=== PATIENT | male | born 1980 | race African-American/Black ===

== ENCOUNTER 2021-03-24 10:56 | Emergency (ER) | payer SELFPAY ==
--- NOTE | ~2021-03-24 | XR_ITS ---
XR lumbar spine 2-3V DATE: 03/24/2021 12:16 INDICATION: Low right back pain; no injury. TECHNIQUE: AP, lateral, coned lateral lumbosacral views COMPARISON: None FINDINGS: Normal alignment of the lumbar spine. No fracture or bone destruction or spondylolisthesis. The lumbar pedicles are intact. Lumbar and lumbosacral interspaces appear preserved. The sacroiliac joints appear normal. IMPRESSION: No significant abnormality Reviewed, dictated and finalized at location A. 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
[2021-03-24 11:04] VITALS: BP 153/98; PULSE 66; RESP 14; TEMP 36.7; O2SAT 100
[2021-03-24 11:25] VITALS: BP 153/98; PULSE 66; RESP 16; TEMP 36.6; O2SAT 100
--- NOTE | 2021-03-24 11:51 | ED.GENADULT ---
HPI - General Adult General Chief complaint: Back Pain/Injury Stated complaint: Back pain Time Seen by Provider: 03/24/21 11:16 Source: patient Mode of arrival: ambulatory Limitations: no limitations History of Present Illness HPI narrative: Pt presents for evaluation of low back pain for the past two weeks. He has had intermittent low back pain for about twenty years. He states his initial episode of pain started after moving some items using a candice. He cannot identify any recent injury. He states he was seen at [facility] about three weeks ago for fever, body aches, fatigue. He had a COVID test at that time which was negative. He states that the treating provider told him he likely had influenza but a flu test was not performed. Patient states that pain in low back is constant, described as stabbing , rated 8/10. No radicular component. No paresthesias. No urinary symptoms. He took ibuprofen for his pain without significant improvement thereafter. Related Data Allergies Allergy/AdvReac Type Severity Reaction Status Date / Time No Known Allergies Allergy Unknown Verified 03/24/21 11:17 Review of Systems Review of Systems: CONSTITUTIONAL: Denies fever, chills, or sweats. EYES: Denies visual changes, redness, or discharge. ENT: Denies rhinorrhea, congestion, sore throat, or otalgia. CARDIOVASCULAR: Denies chest pain, palpitations, or edema. RESPIRATORY: Denies cough or dyspnea. GASTROINTESTINAL: Denies abdominal pain, nausea, vomiting, or diarrhea. GENITOURINARY: Denies dysuria or hematuria. SKIN: Denies rash or itching. MUSCULOSKELETAL: Reports low back pain. Denies joint pain or myalgia. NEUROLOGIC: Denies headache, numbness, dizziness, or weakness. PSYCHIATRIC: Denies anxiety or depression. [facility] Past Medical History Medical History (Updated 03/24/21 @ 12:43 by MARGARETTE Lindo, EMILY) No pertinent past medical history Surgical History Surgical History History of hand surgery Family History Family History Mother Cerebrovascular accident Social History Social History Alcohol intake: never Substance use: current Substance use type: marijuana Additional living arrangements comments: Lives with girlfriend Gender identity (if verbalized by the patient): Male Sexual Orientation (if Verbalized by the Patient): Straight or Heterosexual Spiritual care concerns: No Exam Narrative: GENERAL: Well-appearing, well-nourished, and in no acute distress. HEAD: Normocephalic, atraumatic. EYES: PERRLA and EOMI. ENT: Nares clear, no rhinorrhea or epistaxis. Mucous membranes moist. Oropharynx without tonsillar hypertrophy exudate or other lesions. Bilateral TMs pearly felipe nonbulging NECK: Supple. No adenopathy or masses. No carotid bruits or JVD CHEST: Clear to auscultation. No respiratory distress. No wheezes rales or rhonchi HEART: Regular rate and rhythm. No murmur heard. Normal peripheral pulses. ABDOMEN: Soft, nontender, nondistended, normal active bowel sounds. EXTREMITIES: Normal range of motion. No edema. BACK: No tenderness in midline or paraspinous muscles of lumbar spine or over posterior pelvis SKIN: Warm, dry, no rash. NEURO: No focal deficits. Alert and oriented x3. PSYCH: Normal mood and affect. Course Course Emergency Course: This is a 40-year-old male who presented with complaints of low back pain. X-ray was negative. He was given Toradol and Flexeril with some mild improvement in his symptoms. Will discharge with Flexeril and tramadol. He can continue to take NSAIDs. He should follow-up outpatient for further evaluation and treatment and return for worsening symptoms. Patient in agreement with plan of care. Vital Signs Vital signs: Vital Signs Temperature 36.7 C 03/24/21 11:04 Puls
[2021-03-24] MEDS: KETOROLAC (*BKC) 60 MG/2 ML VIAL IM (11:56)
[2021-03-24] MEDS: CYCLOBENZAPRINE HCL 10 MG TABLET PO (11:56)
== END 2021-03-24 13:00 | disposition home or self-care (01) ==
PROVIDERS: Emergency Provider Nurse Practitioner
DX: S39.012A Strain of muscle, fascia and tendon of lower back, initial encounter (principal); X58.XXXA Exposure to other specified factors, initial encounter
CPT/HCPCS: 72100; 96372; 99283; A9270; J1885

== ENCOUNTER 2021-12-31 20:55 | Emergency (ER) | payer OTHER, SELFPAY ==
[2021-12-31 20:58] VITALS: BP 162/94; PULSE 64; RESP 20; TEMP 36.4; O2SAT 99
--- NOTE | 2021-12-31 23:37 | ED.BACK ---
HPI - Back Pain/Injury General Chief Complaint: Back Pain/Injury Stated Complaint: back pain Time Seen by Provider: 12/31/21 23:07 History of Present Illness HPI Narrative: 41-year-old male with a chronic low back pain patient presents to the emergency room with worsening low back pain. Patient states symptoms worsened yesterday following no specific known injury or trauma. Patient denies radiating pain. Denies radiculopathy. No saddle anesthesia. No changes or loss of bowel or bladder function. Patient states that he has follow-up with an orthopedic spine surgeon next month in [place]. Related Data Allergies Allergy/AdvReac Type Severity Reaction Status Date / Time No Known Allergies Allergy Unknown Verified 12/31/21 20:56 Review of Systems Review of Systems: CONSTITUTIONAL: Denies fever, chills, or sweats. EYES: Denies visual changes, redness, or discharge. ENT: Denies rhinorrhea, congestion, sore throat, or otalgia. CARDIOVASCULAR: Denies chest pain, palpitations, or edema. RESPIRATORY: Denies cough or dyspnea. GASTROINTESTINAL: Denies abdominal pain, nausea, vomiting, or diarrhea. GENITOURINARY: Denies dysuria or hematuria. SKIN: Denies rash or itching. MUSCULOSKELETAL: Reports low back pain NEUROLOGIC: Denies headache, numbness, dizziness, or weakness. PSYCHIATRIC: Denies anxiety or depression. PMFSH Past Medical History Medical History No pertinent past medical history Surgical History Surgical History History of hand surgery Family History Family History Mother Cerebrovascular accident Social History Social History Alcohol intake: never Substance use: current Substance use type: marijuana Additional living arrangements comments: Lives with girlfriend Gender identity (if verbalized by the patient): Male Sexual Orientation (if Verbalized by the Patient): Straight or Heterosexual Spiritual care concerns: No Exam Narrative: GENERAL: Well-appearing, well-nourished, no physical limitations, and in no acute distress. HEAD: Normocephalic, atraumatic. EYES: Conjunctivae normal, PERRLA and EOMI. CHEST: Clear to auscultation. No respiratory distress. No wheezes rales or rhonchi. HEART: Regular rate and rhythm. No murmur heard. Normal peripheral pulses. BACK: No midline lumbar tenderness, no step-offs, no bony abnormality; pain with lateral bend and bilateral rotation. Tenderness over the paralumbar muscles EXTREMITIES: Normal range of motion. No edema. No clubbing or cyanosis SKIN: Warm, dry, no rash. No noted wounds NEURO: No focal deficits. Alert and oriented x3. MAEW. CN's II-XI intact bilaterally, normal gait PSYCH: Cooperative. Normal mood and affect. Course Vital Signs Vital signs: Vital Signs Temperature 36.4 C 12/31/21 20:58 Pulse Rate 64 12/31/21 20:58 Respiratory Rate 20 12/31/21 20:58 Blood Pressure 162/94 H 12/31/21 20:58 Pulse Oximetry 99 12/31/21 20:58 Oxygen Delivery Room Air 12/31/21 20:58 Temperature 36.4 C 12/31/21 20:58 Pulse Rate 64 12/31/21 20:58 Respiratory Rate 20 12/31/21 20:58 Blood Pressure 162/94 H 12/31/21 20:58 Pulse Oximetry 99 12/31/21 20:58 Oxygen Delivery Room Air 12/31/21 20:58 Discharge Plan Discharge Clinical Impression: Strain of lumbar region Patient Disposition: Home, Self-Care Condition: Stable Instructions: Antibiotic Form, Acute Low Back Pain (ED) Prescriptions: New methocarbamol 750 mg tablet 750 mg PO TID Qty: 30 0RF No Action tramadol 50 mg tablet 50 mg PO Q8H PRN (Reason: pain) Qty: 12 0RF cyclobenzaprine 10 mg tablet 10 mg PO TID PRN (Reason: muscle spasm) Qty: 15 0RF Follow-up/Referrals: PHYSICIAN,COMPLIANCE PARALEGAL [Primary Care Provider] -
[2022-01-01] MEDS: methocarbamoL 750 MG TABLET PO (00:06)
[2022-01-01 00:48] VITALS: BP 140/99; PULSE 59; RESP 16; O2SAT 99
== END 2022-01-01 00:51 | disposition home or self-care (01) ==
LOC: ANHED 23:51
PROVIDERS: Emergency Provider Nurse Practitioner Family
DX: S39.012A Strain of muscle, fascia and tendon of lower back, initial encounter (principal); X58.XXXA Exposure to other specified factors, initial encounter
CPT/HCPCS: 99283; A9270